=== PATIENT | male | born 1995 | race Caucasian/White ===

== ENCOUNTER 2017-03-01 12:49 | Emergency (ER) | payer BC ==
[~2017-03-01] VITALS: Ht 193 cm; Wt 89.6 kg
[2017-03-01 13:46] VITALS: BP 119/60
[2017-03-01] MEDS ORDERED: KEFLEX500 MG PO (15:09)
[2017-03-01] MEDS ORDERED: KENALOG,ARISTOC80 GM TP (15:09)
== END 2017-03-01 15:22 | disposition home or self-care (01) ==
LOC: EME 12:49
DX: S90.211A Contusion of right great toe with damage to nail, initial encounter (principal); L03.031 Cellulitis of right toe; W20.8XXA Other cause of strike by thrown, projected or falling object, initial encounter; F17.200 Nicotine dependence, unspecified, uncomplicated
CPT/HCPCS: 99281; 99284